=== PATIENT | male | born 1975 | race African-American/Black ===

== ENCOUNTER 2023-04-08 09:01 | Inpatient (IN) | payer OTHER ==
[~2023-04-08] VITALS: Ht 172.7 cm; Wt 85.0 kg
[2023-04-08] MEDS ORDERED: ASPIRIN 81MG TABLET PO NR (09:15)
[2023-04-08 09:51] LABS: BASOPHILS % 1.1 % (0.0-2.0); EOSINOPHILS % 0.8 % (0.0-5.0); HEMOGLOBIN. 12.7 g/dL (14.0-18.0); LYMPHOCYTES % 27.7 % (20.0-50.0); MEAN CORPUSCULAR HEMOGLOBIN 31.9 pg (28.0-32.0); MEAN CORPUSCULAR HGB CONC 34.3 g/dL (31.0-37.0); MEAN CORPUSCULAR VOLUME 92.9 fL (80.0-94.0); MONOCYTES % 6.5 % (2.0-8.0); NEUTROPHILS % 63.9 % (40.0-76.0); PLATELET 101 x1000/uL (130-400); RED BLOOD CELL COUNT 3.98 mill/uL (4.7-6.1); RED CELL DISTRIBUTION WIDTH 16.5 % (11.6-14.6); WHITE BLOOD COUNT 8.7 x1000/uL (4.5-11.0)
[2023-04-08 11:00] LABS: ALANINE AMINOTRANSFERASE 36 IU/L (10-49); ALBUMIN 3.2 g/dL (3.2-4.8); ASPARTATE AMINOTRANSFERASE 78 IU/L (<34); BILIRUBIN TOTAL 6.4 mg/dL (0.1-1.0); CALCIUM 8.8 mg/dL (8.7-10.4); CARBON DIOXIDE 15 mEq/L (21-32); CHLORIDE 104 mEq/L (98-107); CREATININE 0.9 mg/dL (0.6-1.3); GLUCOSE 134 mg/dL (70-105); POTASSIUM 3.1 mEq/L (3.5-5.1); PROTEIN TOTAL 6.7 g/dL (6.0-8.3); SODIUM 135 mEq/L (136-145); TROPONIN I HIGH SENSITIVITY 28 ng/L (3.0-53); UREA NITROGEN BLOOD 8 mg/dL (9-23)
[2023-04-08] MEDS ORDERED: POTASSIUM CHLORIDE 20MEQ/PACKET PO SCH (12:15)
[2023-04-08] MEDS ORDERED: MAGNESIUM/ALUMINUM HYDROXIDE/SIMETHICONE 30ML UDC PO PRN (14:00)
[2023-04-08] MEDS ORDERED: ACETAMINOPHEN 325MG TABLET PO PRN ×2 (14:00)
[2023-04-08] MEDS ORDERED: GUAIFENESIN 200MG/10ML SUGAR FREE UDC PO PRN (14:00)
[2023-04-08] MEDS ORDERED: IPRATROPIUM/ALBUTEROL 0.5-3(2.5)MG/3ML NEB HHN PRN (14:00)
[2023-04-08] MEDS ORDERED: ONDANSETRON HCL 4MG/2ML INJ IV PRN (14:00)
[2023-04-08] MEDS ORDERED: CLONIDINE 0.1MG TABLET PO PRN (14:00)
[2023-04-08 14:31] VITALS: BP 154/80; PULSE 78; RESP 16; TEMP 98.7
[2023-04-08 15:37] VITALS: BP 140/92; PULSE 80; RESP 23; TEMP 98.7
[2023-04-08 16:03] VITALS: BP 182/91; PULSE 82; RESP 23
[2023-04-08] MEDS ORDERED: NITROGLYCERIN 0.4MG TABLET SL SL PRN (17:30)
[2023-04-08] MEDS ORDERED: CHLORDIAZEPOXIDE 25MG CAPSULE PO SCH (18:15)
[2023-04-08] MEDS ORDERED: LORAZEPAM 1MG TABLET PO PRN (18:15)
[2023-04-08] MEDS: FOLIC ACID 1MG TABLET PO SCH (19:14)
[2023-04-08] MEDS: THIAMINE HCL 100MG TABLET PO SCH (19:14)
[2023-04-08 20:00] VITALS: BP 163/83; PULSE 78; RESP 18; TEMP 98.1
[2023-04-08] MEDS ORDERED: DEXTROSE 50% WATER 50ML SYRINGE IV PRN (21:00)
[2023-04-08] MEDS: ENOXAPARIN 100MG/ML SYR SUBCUT SCH (21:00)
[2023-04-08] MEDS ORDERED: FAMOTIDINE 20MG TABLET PO SCH (21:00)
[2023-04-08 22:33] LABS: AMYLASE 120 IU/L (30-118)
[2023-04-08 22:34] LABS: PHOSPHORUS 2.2 mg/dL (2.5-4.9)
[2023-04-08 22:35] LABS: CREATINE KINASE MB FRACTION 10.3 ng/mL (0.5-3.6)
[2023-04-08 22:58] LABS: FOLIC ACID (FOLATE) SERUM 9.63 ng/mL (>5.38); VITAMIN B12 SERUM 1440 pg/mL (211-911)
[2023-04-09] VITALS (9 sets, daily range): BP systolic 128–159; BP diastolic 74–95; PULSE 65–76; RESP 12–22; TEMP 97.8–98.7
[2023-04-09] MEDS ORDERED: ASPIRIN 81MG EC TABLET PO SCH
[2023-04-09] MEDS ORDERED: CLOPIDOGREL 75MG TABLET PO SCH
[2023-04-09] MEDS: ENOXAPARIN 100MG/ML SYR SUBCUT SCH (01:01)
[2023-04-09 01:44] LABS: INR 1.7; PROTHROMBIN TIME 17.7 sec (9.6-11.0)
[2023-04-09 07:27] LABS: BASOPHILS % 1.4 % (0.0-2.0); DIFFERENTIAL COMMENT 0; EOSINOPHILS % 2.6 % (0.0-5.0); HEMATOCRIT. 36.1 % (42.0-52.0); HEMOGLOBIN. 12.1 g/dL (14.0-18.0); LYMPHOCYTES % 23.9 % (20.0-50.0); MEAN CORPUSCULAR HEMOGLOBIN 31.7 pg (28.0-32.0); MEAN CORPUSCULAR HGB CONC 33.6 g/dL (31.0-37.0); MEAN CORPUSCULAR VOLUME 94.3 fL (80.0-94.0); MEAN PLATELET VOLUME 8.8 fl (7.4-10.4); MONOCYTES % 9.9 % (2.0-8.0); NEUTROPHILS % 62.2 % (40.0-76.0); PLATELET 84 x1000/uL (130-400); RED BLOOD CELL COUNT 3.82 mill/uL (4.7-6.1); RED CELL DISTRIBUTION WIDTH 16.9 % (11.6-14.6); WHITE BLOOD COUNT 7.3 x1000/uL (4.5-11.0)
[2023-04-09 08:23] LABS: CREATINE KINASE 157 IU/L (46-171); CREATINE KINASE MB FRACTION 11.5 ng/mL (0.5-3.6); LACTATE DEHYDROGENASE 390 IU/L (120-246)
[2023-04-09 08:26] LABS: HAPTOGLOBIN < 1 mg/dL (40-280); TROPONIN I HIGH SENSITIVITY 1630 ng/L (3.0-53)
[2023-04-09] MEDS: FOLIC ACID 1MG TABLET PO SCH (08:35)
[2023-04-09] MEDS: FAMOTIDINE 20MG TABLET PO SCH (08:35)
[2023-04-09] MEDS: THIAMINE HCL 100MG TABLET PO SCH (08:35)
[2023-04-09 08:56] LABS: ALANINE AMINOTRANSFERASE 36 IU/L (10-49); ALBUMIN 2.8 g/dL (3.2-4.8); ASPARTATE AMINOTRANSFERASE 76 IU/L (<34); BILIRUBIN TOTAL 6.7 mg/dL (0.1-1.0); CALCIUM 8.4 mg/dL (8.7-10.4); CARBON DIOXIDE 24 mEq/L (21-32); CHLORIDE 106 mEq/L (98-107); CHOLESTEROL 280 mg/dL (<200); CREATININE 0.7 mg/dL (0.6-1.3); GLUCOSE 65 mg/dL (70-105); HDL CHOLESTEROL < 20 mg/dL (>55); LDL CHOLESTEROL 181 mg/dL (5-100); POTASSIUM 3.4 mEq/L (3.5-5.1); PROTEIN TOTAL 6.2 g/dL (6.0-8.3); SODIUM 137 mEq/L (136-145); T4 FREE 1.23 ng/dL (0.89-1.76); THYROID STIMULATING HORMONE 1.78 uIU/mL (0.55-4.78); TRIGLYCERIDE 67 mg/dL (0-150); UREA NITROGEN BLOOD 11 mg/dL (9-23)
[2023-04-09 10:12] LABS: CLARITY URINE CLEAR (CLEAR); COLOR URINE DARK YELLOW (YELLOW); GLUCOSE URINE NEGATIVE (NEGATIVE); KETONES URINE NEGATIVE (NEGATIVE); LEUKOCYTE ESTERASE URINE NEGATIVE (NEGATIVE); NITRITE URINE NEGATIVE (NEGATIVE); OCCULT BLOOD URINE NEGATIVE (NEGATIVE); PROTEIN URINE NEGATIVE (NEGATIVE); SPECIFIC GRAVITY URINE 1.009 (1.005-1.030)
[2023-04-09 10:36] LABS: BACTERIA URINE NONE SEEN; RBC URINE NONE SEEN /hpf (0-2); WBC URINE NONE SEEN /hpf (0-2)
[2023-04-09 11:22] LABS: *AMPHETAMINES SCREEN URINE NEGATIVE (NEGATIVE); *BARBITURATES SCREEN URINE NEGATIVE (NEGATIVE); *BENZODIAZEPINES SCREEN URINE NEGATIVE (NEGATIVE); *COCAINE SCREEN URINE NEGATIVE (NEGATIVE); CANNABINOID URINE SCREEN NEGATIVE (NEGATIVE); ECSTASY MDMA SCREEN URINE NEGATIVE (NEGATIVE); METHADONE URINE SCREEN Neg (NEGATIVE); OPIATES URINE SCREEN NEGATIVE (NEGATIVE); PHENCYCLIDINE URINE SCREEN NEGATIVE (NEGATIVE)
[2023-04-09 12:33] LABS: INR 1.7; PROTHROMBIN TIME 17.7 sec (9.6-11.0)
[2023-04-09 13:12] LABS: CREATINE KINASE MB FRACTION 7.2 ng/mL (0.5-3.6)
[2023-04-09] MEDS ORDERED: ENOXAPARIN 100MG/ML SYR SUBCUT SCH (13:20)
[2023-04-09] MEDS ORDERED: VERAPAMIL HCL 2.5 MG/1 ML 2ML VIAL IV ONE (15:21)
[2023-04-09] MEDS ORDERED: DIPHENHYDRAMINE 50MG/ML VIAL ONE (15:21)
[2023-04-09] MEDS ORDERED: LIDOCAINE HCL 1% 10 MG/ML 10ML VIAL ONE (15:21)
[2023-04-09] MEDS ORDERED: HEPARIN 1000 UNITS/ML 10ML ONE (15:22)
[2023-04-09] MEDS ORDERED: IODIXANOL 320MG/ML 100 ML BOTTLE IV ONE (15:22)
[2023-04-09] MEDS ORDERED: MIDAZOLAM HCL 2 MG/2 ML VIAL ONE (15:55)
[2023-04-09] MEDS ORDERED: FENTANYL CITRATE/PF 50MCG/ML 2ML VIAL ONE (15:55)
[2023-04-09] MEDS ORDERED: CLOPIDOGREL 75MG TABLET ONE (16:42)
[2023-04-09] MEDS ORDERED: ACETAMINOPHEN 325MG TABLET PO PRN (17:15)
[2023-04-09] MEDS ORDERED: ATROPINE SULFATE 1MG/10ML SYR IV PRN (17:15)
[2023-04-09] MEDS ORDERED: POTASSIUM CHLORIDE 20MEQ TABLET SR PO NR (17:30)
[2023-04-09] MEDS ORDERED: MAGNESIUM 2 G PREMIX 50 ML IV NR (18:30)
[2023-04-09] MEDS ORDERED: SODIUM PHOS,M-BASIC-D-BASIC 15 MM in DEXT 5% WATER 245 ML IV NR (18:30)
[2023-04-09 18:37] LABS: PHOSPHORUS 2.5 mg/dL (2.5-4.9)
[2023-04-09 18:49] LABS: BILIRUBIN DIRECT 4.7 mg/dL (<=3.0)
[2023-04-09] MEDS: CARVEDILOL 3.125 MG TABLET PO SCH (21:01)
[2023-04-09] MEDS: ATORVASTATIN CALCIUM 40MG TABLET PO SCH (21:02)
[2023-04-10] VITALS (9 sets, daily range): BP systolic 121–141; BP diastolic 71–99; PULSE 62–72; RESP 14–19; TEMP 97.6–98.6
[2023-04-10 07:58] LABS: ALANINE AMINOTRANSFERASE 31 IU/L (10-49); ALBUMIN 2.9 g/dL (3.2-4.8); ASPARTATE AMINOTRANSFERASE 68 IU/L (<34); BILIRUBIN TOTAL 6.9 mg/dL (0.1-1.0); CALCIUM 8.2 mg/dL (8.7-10.4); CARBON DIOXIDE 25 mEq/L (21-32); CHLORIDE 107 mEq/L (98-107); CREATININE 0.7 mg/dL (0.6-1.3); GLUCOSE 66 mg/dL (70-105); POTASSIUM 3.6 mEq/L (3.5-5.1); PROTEIN TOTAL 5.8 g/dL (6.0-8.3); SODIUM 137 mEq/L (136-145); UREA NITROGEN BLOOD 10 mg/dL (9-23)
[2023-04-10 08:24] LABS: BASOPHILS % 1.2 % (0.0-2.0); EOSINOPHILS % 1.9 % (0.0-5.0); HEMATOCRIT. 35.6 % (42.0-52.0); HEMOGLOBIN. 11.9 g/dL (14.0-18.0); LYMPHOCYTES % 25.2 % (20.0-50.0); MEAN CORPUSCULAR HEMOGLOBIN 31.6 pg (28.0-32.0); MEAN CORPUSCULAR HGB CONC 33.5 g/dL (31.0-37.0); MEAN CORPUSCULAR VOLUME 94.3 fL (80.0-94.0); MEAN PLATELET VOLUME 8.8 fl (7.4-10.4); MONOCYTES % 11.5 % (2.0-8.0); NEUTROPHILS % 60.2 % (40.0-76.0); PLATELET 77 x1000/uL (130-400); RED BLOOD CELL COUNT 3.78 mill/uL (4.7-6.1); RED CELL DISTRIBUTION WIDTH 16.3 % (11.6-14.6)
[2023-04-10] MEDS: CARVEDILOL 3.125 MG TABLET PO SCH ×2 (09:00→21:15)
[2023-04-10] MEDS ORDERED: LIDOCAINE 2% 6ML GLYDO MM ONE (13:07)
[2023-04-10] MEDS ORDERED: MIDAZOLAM HCL 2 MG/2 ML VIAL ONE ×2 (13:07→13:47)
[2023-04-10] MEDS ORDERED: TETRACAINE/BENZOCAINE/BUTAMBEN 20 GM SPRAY MM ONE (13:08)
[2023-04-10] MEDS ORDERED: FENTANYL CITRATE/PF 50MCG/ML 2ML VIAL ONE (13:08)
[2023-04-10] MEDS ORDERED: DEXTROSE 50% WATER 50ML SYRINGE IV PRN (13:15)
[2023-04-10] MEDS: CLOPIDOGREL 75MG TABLET PO SCH (17:29)
[2023-04-10] MEDS: FAMOTIDINE 20MG TABLET PO SCH (17:29)
[2023-04-10] MEDS: THIAMINE HCL 100MG TABLET PO SCH (17:29)
[2023-04-10] MEDS: FOLIC ACID 1MG TABLET PO SCH (17:30)
[2023-04-10] MEDS: ATORVASTATIN CALCIUM 40MG TABLET PO SCH (21:14)
[2023-04-11] VITALS: BP 124/56; PULSE 70; RESP 23; TEMP 97.6
[2023-04-11 04:00] VITALS: BP 100/50; PULSE 62; RESP 26; TEMP 97.2
[2023-04-11 06:59] LABS: BASOPHILS % 1.4 % (0.0-2.0); DIFFERENTIAL COMMENT 0; EOSINOPHILS % 1.9 % (0.0-5.0); HEMATOCRIT. 35.1 % (42.0-52.0); LYMPHOCYTES % 21.1 % (20.0-50.0); MEAN CORPUSCULAR HEMOGLOBIN 31.8 pg (28.0-32.0); MEAN CORPUSCULAR HGB CONC 34.1 g/dL (31.0-37.0); MEAN CORPUSCULAR VOLUME 93.5 fL (80.0-94.0); MONOCYTES % 11.2 % (2.0-8.0); NEUTROPHILS % 64.4 % (40.0-76.0); PLATELET 76 x1000/uL (130-400); RED BLOOD CELL COUNT 3.76 mill/uL (4.7-6.1); RED CELL DISTRIBUTION WIDTH 16.9 % (11.6-14.6)
[2023-04-11 08:00] VITALS: BP 119/66; PULSE 74; RESP 20; TEMP 98
[2023-04-11] MEDS: CARVEDILOL 3.125 MG TABLET PO SCH (08:53)
[2023-04-11] MEDS: THIAMINE HCL 100MG TABLET PO SCH (08:53)
[2023-04-11] MEDS: FAMOTIDINE 20MG TABLET PO SCH (08:53)
[2023-04-11] MEDS: CLOPIDOGREL 75MG TABLET PO SCH (08:53)
[2023-04-11] MEDS: FOLIC ACID 1MG TABLET PO SCH (08:53)
[2023-04-11] MEDS ORDERED: ASPIRIN 81MG TABLET PO SCH ×2 (09:00)
[2023-04-11 09:11] LABS: ALANINE AMINOTRANSFERASE 30 IU/L (10-49); ALBUMIN 2.9 g/dL (3.2-4.8); ASPARTATE AMINOTRANSFERASE 69 IU/L (<34); BILIRUBIN TOTAL 6.9 mg/dL (0.1-1.0); CALCIUM 8.1 mg/dL (8.7-10.4); CARBON DIOXIDE 24 mEq/L (21-32); CHLORIDE 107 mEq/L (98-107); CREATININE 0.8 mg/dL (0.6-1.3); GAMMA GLUTAMYL TRANSPEPTIDASE 137 IU/L (<73); GLUCOSE 85 mg/dL (70-105); LACTATE DEHYDROGENASE 286 IU/L (120-246); POTASSIUM 3.5 mEq/L (3.5-5.1); SODIUM 137 mEq/L (136-145); UREA NITROGEN BLOOD 10 mg/dL (9-23)
[2023-04-11 09:14] LABS: HAPTOGLOBIN < 1 mg/dL (40-280)
[2023-04-11] MEDS ORDERED: COR3 PO (11:20)
[2023-04-11] MEDS ORDERED: CLOP-31 PO (11:20)
[2023-04-11] MEDS ORDERED: LIP40 PO (11:20)
[2023-04-11] MEDS ORDERED: ASPI-1160 PO (11:20)
[2023-04-11 11:59] VITALS: BP 100/50; PULSE 62; TEMP 98; O2SAT 98
[2023-04-11 12:00] VITALS: BP 128/72; PULSE 71; RESP 24; TEMP 98.2
[2023-04-12 09:06] LABS: IMMUNOGLOBULIN A 442 mg/dL (90-386); IMMUNOGLOBULIN G 1568 mg/dL (603-1613); IMMUNOGLOBULIN M 170 mg/dL (20-172)
== END 2023-04-11 13:55 | disposition home or self-care (01) | DRG 322 ==
LOC: ER 09:01 → 5WST 12:41 → EDBEDREQTM 13:00 → EDBEDREQ 13:00 → 3WST 14:17
PROVIDERS: ADMIT Internal Medicine; ATTEND Internal Medicine
PROC: 027034Z Dilation of Coronary Artery, One Artery with Drug-eluting Intraluminal Device, Percutaneous Approach (ICD-10-PCS; principal; 2023-04-09)
PROC: 4A023N7 Measurement of Cardiac Sampling and Pressure, Left Heart, Percutaneous Approach (ICD-10-PCS; 2023-04-09)
PROC: B211YZZ Fluoroscopy of Multiple Coronary Arteries using Other Contrast (ICD-10-PCS; 2023-04-09)
PROC: 4A033BC Measurement of Arterial Pressure, Coronary, Percutaneous Approach (ICD-10-PCS; 2023-04-09)
DX: I21.4 Non-ST elevation (NSTEMI) myocardial infarction (principal); E87.1 Hypo-osmolality and hyponatremia; E87.20 Acidosis, unspecified; I25.10 Atherosclerotic heart disease of native coronary artery without angina pectoris; E87.6 Hypokalemia; I10 Essential (primary) hypertension; D64.9 Anemia, unspecified; D69.6 Thrombocytopenia, unspecified; E78.5 Hyperlipidemia, unspecified; E83.39 Other disorders of phosphorus metabolism; R73.9 Hyperglycemia, unspecified; R74.01 Elevation of levels of liver transaminase levels; R74.02 Elevation of levels of lactic acid dehydrogenase [LDH]; E53.8 Deficiency of other specified B group vitamins; E80.6 Other disorders of bilirubin metabolism; E83.42 Hypomagnesemia; F10.10 Alcohol abuse, uncomplicated; F17.210 Nicotine dependence, cigarettes, uncomplicated; F17.290 Nicotine dependence, other tobacco product, uncomplicated; Y99.0 Civilian activity done for income or pay; Z79.82 Long term (current) use of aspirin
CPT/HCPCS: 36415; 71045; 80048; 80053; 80061; 80305; 81003; 82150; 82248; 82550; 82553; 82607; 82746; 82784; 82962; 82977; 83010; 83036; 83605; 83615; 83735; 83880; 84100; 84439; 84443; 84484; 85025; 85044; 85347; 85379; 86038; 86334; 86880; 92928; 93005; 93306; 93308; 93312; 93458; 99285; A4565; C1725; C1769; C1874; C1887; C1893; J1200; J1644; J1650; J2250; J3010; J3475; J3490; J7060; Q9967

== ENCOUNTER 2023-04-18 07:19 | Inpatient (IN) | payer OTHER ==
[2023-04-18] VITALS (7 sets, daily range): BP systolic 81–106; BP diastolic 40–59; PULSE 76–85; RESP 17–18; TEMP 96.8–97.6; O2SAT 100
[~2023-04-18] VITALS: Ht 177.8 cm; Wt 90.3 kg
[~2023-04-18 07:19] MED LIST: ASPI-1160 PO; CLOP-31 PO; COR3 PO; LIP40 PO
[2023-04-18] MEDS ORDERED: ASPIRIN 81MG TABLET PO ONE (07:45)
[2023-04-18 08:28] LABS: BASOPHILS % 0.2 % (0.0-2.0); EOSINOPHILS % 4.9 % (0.0-5.0); HEMATOCRIT. 44.6 % (42.0-52.0); HEMOGLOBIN. 15.1 g/dL (14.0-18.0); LYMPHOCYTES % 12.1 % (20.0-50.0); MEAN CORPUSCULAR HEMOGLOBIN 32.3 pg (28.0-32.0); MONOCYTES % 13.9 % (2.0-8.0); NEUTROPHILS % 68.9 % (40.0-76.0); RED BLOOD CELL COUNT 4.69 mill/uL (4.7-6.1); RED CELL DISTRIBUTION WIDTH 18.2 % (11.6-14.6)
[2023-04-18 08:31] LABS: INR 2.4; PROTHROMBIN TIME 24.5 sec (9.6-11.0)
[2023-04-18 08:40] LABS: DIFFERENTIAL COMMENT 1
[2023-04-18 08:41] LABS: ALANINE AMINOTRANSFERASE 196 IU/L (10-49); ALBUMIN 2.5 g/dL (3.2-4.8); ASPARTATE AMINOTRANSFERASE 389 IU/L (<34); BILIRUBIN TOTAL 9.3 mg/dL (0.1-1.0); CALCIUM 7.4 mg/dL (8.7-10.4); CARBON DIOXIDE 18 mEq/L (21-32); CHLORIDE 102 mEq/L (98-107); GLUCOSE 113 mg/dL (70-105); POTASSIUM 4.1 mEq/L (3.5-5.1); PROTEIN TOTAL 5.5 g/dL (6.0-8.3); SODIUM 131 mEq/L (136-145); UREA NITROGEN BLOOD 19 mg/dL (9-23)
[2023-04-18 08:43] LABS: CREATININE 1.9 mg/dL (0.6-1.3)
[2023-04-18 08:45] LABS: TROPONIN I HIGH SENSITIVITY 82 ng/L (3.0-53)
[2023-04-18 10:06] LABS: PLATELET 61 x1000/uL (130-400)
[2023-04-18 11:31] LABS: TROPONIN I HIGH SENSITIVITY 83 ng/L (3.0-53)
[2023-04-18] MEDS ORDERED: ONDANSETRON HCL 4MG/2ML INJ IV PRN (12:15)
[2023-04-18] MEDS ORDERED: ACETAMINOPHEN 325MG TABLET PO PRN (12:15)
[2023-04-18 12:50] LABS: TROPONIN I HIGH SENSITIVITY 96 ng/L (3.0-53)
[2023-04-18] MEDS ORDERED: NITROGLYCERIN OINT 1GM/INCH UDPKT TD SCH (14:00)
[2023-04-18] MEDS ORDERED: CLOPIDOGREL 75MG TABLET PO NR (15:00)
[2023-04-18] MEDS ORDERED: SODIUM CHLORIDE 0.9% 1,000 ML IV NR (19:45)
[2023-04-18] MEDS ORDERED: NOREPINEPHRINE 32 MG in DEXT 5% WATER 218 ML IV PRN (19:45)
[2023-04-18] MEDS ORDERED: VANCOMYCIN 2,000 MG in DEXT 5% WATER 500 ML IV NR (21:00)
[2023-04-18] MEDS ORDERED: PIPERACILLIN/TAZO 3.375G/50ML 50 ML IV SCH (21:00)
[2023-04-19] MEDS ORDERED: ASPIRIN 81MG TABLET PO SCH (09:00)
[2023-04-19] MEDS ORDERED: CLOPIDOGREL 75MG TABLET PO SCH (09:00)
== END 2023-04-19 00:37 | DRG 392 ==
LOC: ER 07:19 → 7EST 09:43 → EDBEDREQ 09:51 → EDBEDREQTM 09:51 → MICUNO 20:43
PROVIDERS: ADMIT Internal Medicine; ATTEND Internal Medicine
PROC: 0BH17EZ Insertion of Endotracheal Airway into Trachea, Via Natural or Artificial Opening (ICD-10-PCS; principal; 2023-04-18)
DX: R11.2 Nausea with vomiting, unspecified (principal); D68.9 Coagulation defect, unspecified; D69.6 Thrombocytopenia, unspecified; E78.5 Hyperlipidemia, unspecified; I10 Essential (primary) hypertension; Z95.5 Presence of coronary angioplasty implant and graft
CPT/HCPCS: 31500; 36415; 71045; 80053; 82962; 83880; 84484; 85025; 92950; 93005; 94002; 99291; C1725; J2543; J3370; J7060; A4315